=== PATIENT | female | born 1930 ===

== ENCOUNTER → 2019-11-02 15:25 | Outpatient (CLI) | payer MEDICARE ==
[2019-11-02 15:51] LABS: BILIRUBIN NEGATIVE (NEGATIVE); GLUCOSE NEGATIVE (NEGATIVE); KETONE NEGATIVE (NEGATIVE); NITRITE NEGATIVE (NEGATIVE); UROBILINOGEN NORMAL (NORMAL)
[2019-11-02 15:52] LABS: BACTERIA MODERATE /hpf (NEGATIVE); RED CELLS - URINE NONE SEEN /hpf (0-5)
== END | disposition home or self-care (01) ==
LOC: D.LABREF 15:25
PROVIDERS: ATTEND Specialist
DX: N39.0 Urinary tract infection, site not specified (principal)